=== PATIENT | female | born 1960 | race Caucasian/White ===

== ENCOUNTER 2016-10-11 07:25 | Day surgery (SDC) | payer BC ==
[2016-10-05 16:12] VITALS: BMI 24.3
[~2016-10-11 07:25] MED LIST: DEXAMETHASONE SOD PHOSPHATE 10 MG/ML 1 ML VIAL IV ONE; HEPARIN SODIUM,PORCINE 5,000 UNIT/ML 1 ML VIAL SQ ONE; LACTATED RINGERS 1,000 ML IV SCH; MIDAZOLAM 2 MG/2 ML VIAL IV PRN; ONDANSETRON 4 MG/2 ML VIAL IVP ONE; Pre Op ABX Message 1 EACH MISC MISCELLANE ONE; SCOPOLAMINE 1.5MG/72HR PATCH TRANSDERM ONE
[2016-10-11] MEDS ORDERED: LIDOCAINE 1% 20 ML VIAL (10MG/ML) FOR IV START SQ ONE (07:40)
[2016-10-11] MEDS ORDERED: HEPARIN SODIUM,PORCINE 5,000 UNIT/ML 1 ML VIAL SQ ONE (08:02)
[2016-10-11] MEDS ORDERED: fentaNYL (PF) 50 MCG/ML 2 ML AMP ONE (08:56)
[2016-10-11] MEDS ORDERED: PROPOFOL 10 MG/ML 20 ML VIAL IV ONE (08:56)
[2016-10-11] MEDS ORDERED: SUCCINYLCHOLINE CHLORIDE 100 MG/5 ML SYR IV ONE (08:56)
[2016-10-11] MEDS ORDERED: PHENYLEPHRINE-0.9% NACL SYG 1 MG/10 ML SYRINGE ONE (08:56)
[2016-10-11] MEDS ORDERED: MIDAZOLAM 2 MG/2 ML VIAL ONE (08:56)
[2016-10-11] MEDS ORDERED: ePHEDrine 50 MG/ML 1 ML AMP ONE (08:56)
[2016-10-11] MEDS ORDERED: LIDOCAINE 1% INJ 10MG/ML (20 ML MDV) ONE (08:56)
[2016-10-11] MEDS ORDERED: LACTATED RINGERS 1,000 ML IV ONE (09:50)
[2016-10-11] MEDS ORDERED: THROMBIN (BOVINE) 5,000 UNIT VIAL TOPICAL ONE (10:20)
[2016-10-11] MEDS ORDERED: GELATIN SPONGE,ABSORB (SMALL) 1 EACH SPONGE TOPICAL ONE (10:20)
[2016-10-11] MEDS ORDERED: NALOXONE 0.4 MG/ML 1 ML VIAL IV PRN (10:33)
[2016-10-11] MEDS ORDERED: HYDROmorphone 1 MG/ML 1 ML SYRINGE IV PRN (10:33)
--- NOTE | 2016-10-11 10:33 | P.OP ---
Date of Procedure: 10/11/16 Preoperative Diagnosis: Left thyroid nodule and atypical cells and suspicious Postoperative Diagnosis: Same Procedure(s) Performed: Left completion thyroid lobectomy Implants: Anesthesia: ALBERTAA Surgeon: Katelyn Mahmood Estimated Blood Loss (ml): 5 IV fluids (ml): 1,200 Urine output (ml): 200 Pathology: other (Left lobe of thyroid) Condition: stable Disposition: PACU Indications for Procedure: Nodule left lobe of thyroid suspicious patient status post right thyroid lobectomy in the past Operative Findings: Nodule left lobe of thyroid scar tissue Description of Procedure: Patient is a 55-year-old white female who was noted to have a left thyroid nodule biopsy was obtained and this was atypical, molecular testing revealed this to be suspicious. Patient is status post right thyroid lobectomy in the past. Patient was taken to the operating room and following induction of general anesthesia the patient was positioned stimulator was placed. The back was prepped and draped in a sterile fashion. Collar incision was made through prior incision taken through skin subcutaneous tissue and platysma. Superior and inferior skin flaps were developed. The left lobe of the thyroid was approached. The lobe was rotated medially rotated medially. There were noted to be scar tissue which was carefully dissected free from the gland. The area of close on to the superior pole vessels were identified these were ligated and divided. Inferior pole vessels were identified and ligated and divided. The middle thyroid vein was identified this was ligated and divided. I then stated close on the right and the lobe was rotated medially. This was able to be rotated up onto the trachea superior and inferior parathyroids were identified and preserved. There is believed to be recurrent laryngeal nerve was likewise identified and preserved. The gland was removed. Following this after assured that hemostasis was attained as was well irrigated. A [place] drain was placed in the neck. The strap muscles were closed using a Vicryl suture. The PLATYSMA was closed using 3-0 Vicryl. The skin was closed using 4-0 Monocryl. The drain was secured with the silk suture. Patient tolerated procedure in stable condition.
[2016-10-11] MEDS: HYDROmorphone 1 MG/ML 1 ML SYRINGE IVP PRN ×4 (11:05→11:25)
--- NOTE | 2016-10-11 16:30 | P.CONS ---
History of Present Illness - Reason for Consult Consult date: 10/11/16 Medical management - History of Present Illness This is a 55-year-old female patient of Dr. Brandon dasilva with a past medical history of thyroid nodules with previous right-sided resection 8 years ago, asthma, seizure disorder, migraines, diverticulitis, Gillespie Byrd, tobacco use and dependence. Patient was brought into the hospital by Dr. Twin reeves and underwent left complete thyroid lobectomy for left thyroid nodule and atypical cells. Patient is seen in the postop period. She denies any nausea or vomiting. Pain is controlled. She denies any chest pain or shortness of breath. Review of Systems All systems: negative Constitutional: Denies chills, Denies fever Eyes: denies blurred vision, denies pain Ears, nose, mouth and throat: Denies headache, Denies sore throat Cardiovascular: Denies chest pain, Denies shortness of breath Respiratory: Denies cough Gastrointestinal: Denies abdominal pain, Denies diarrhea, Denies nausea, Denies vomiting Genitourinary: Denies dysuria, Denies hematuria Musculoskeletal: Denies myalgias Integumentary: Denies pruritus, Denies rash Neurological: Denies numbness, Denies weakness Psychiatric: Denies anxiety, Denies depression Endocrine: Denies fatigue, Denies weight change Past Medical History Past Medical History: Asthma, Pneumonia, Seizure Disorder, Thyroid Disorder Additional Past Medical History / Comment(s): migranes, diverticulitis, petit- mal seizures, hx of guillian-barre X3, 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 She denies any medical marijuana, marijuana , street drug or alcohol use. She lives at home with her . Past Drug Use History: None Reported - Past Family History Mother Family Medical History: Deep Vein Thrombosis (DVT) Additional Family Medical History / Comment(s): Mother is alive at age 83 with history of hypertension. Father Additional Family Medical History / Comment(s): Father in his 70s with history of coronary artery disease, hypertension, aortic aneurysm, nonalcoholic cirrhosis of the liver. Brother(s) Additional Family Medical History / Comment(s): Patient has 2 brothers and one has Down syndrome status post open heart surgery. The second brother has no major medical problems. Sister(s) Additional Family Medical History / Comment(s): Patient has 3 sisters. One has rheumatoid arthritis diagnosed at age 22. Other 2 sisters have had hysterectomies for noncancerous reasons. Patient has 3 children that are healthy with no major medical problems. Medications and Allergies Home Medications Medication Instructions Recorded Confirmed Type Amitriptyline HCl [Elavil] 10 mg PO HS 10/05/16 10/11/16 History EPINEPHrine (Auto Inject) [Epipen] 0.3 mg IM ONCE PRN 10/05/16 10/11/16 History OXcarbazepine [Trileptal] 450 mg PO BID 10/05/16 10/11/16 History Allergies Allergy/AdvReac Type Severity Reaction Status Date / Time cefdinir Allergy Swelling Verified 10/05/16 15:56 clindamycin Allergy Anaphylaxis Verified 10/05/16 15:56 lamotrigine [From Lamictal] Allergy Rash/Hives Verified 10/05/16 15:56 ofloxacin [From Floxin] Allergy Diarrhea Verified 10/05/16 15:56 Sulfa (Sulfonamide Allergy Nausea & Verified 10/05/16 15:51 Antibiotics) Vomiting and rash metronidazole [From Flagyl] AdvReac Diarrhea Verified 10/05/16 15:56 Penicillins AdvReac Anaphylaxis Verified 10/05/16 15:51 Physical Exam Vitals: Vital Signs Temp Pulse Pulse Resp BP Pulse Ox 10/11/16 11:32 66 16 142/82 100 10/11/16 11:16 68 18 148/87 74 L 10/11/16 11:02 87 18 142/93 99 10/11/16 10:45 98 F 104 H 16 122/85 98 10/11/16 07:44 98.3 F 79 15 146/91 98 Intake and Output 10/10/16 10/11/16 10/11/16 22:59 06:59 14:59 Intake Total 1500 Output Total 355 Balance 1145 Intake: IV 1500 Output: Urine 350 Estimated Blood Loss 5 Gen: This is a 55-year-old female. She is resting in bed and appears to be in no acute distress. HEENT: Head is atraumatic, normocephalic. Pupils equal, round. Sclerae is anicteric. NECK: Supple. No JVD. Dressing in place to the midline. LUNGS: Clear to auscultation. No wheezes or rhonchi. No intercostal retractions. HEART: Regular rate and rhythm. No murmur. ABDOMEN: Soft. Bowel sounds are present. No masses. No tenderness. EXTREMITIES: No pedal edema. No calf tenderness. NEUROLOGICAL: Patient is awake, alert and oriented x3. Cranial nerves 2 through 12 are grossly intact. Assessment and Plan Plan: 1. Left thyroid nodule status post left thyroid lobectomy. Continue current pain management. No plan to resume a levothyroxine until outpatient. 2. Seizure disorder. Continue Trileptal. 3. Gastrointestinal prophylaxis. Continue Pepcid. 4. DVT prophylaxis. Heparin subcu. Discharge plan: Return home Impression and plan of care have been directed as dictated by the signing physician. Tegan Haji nurse practitioner acting as scribe for signing physician.
[2016-10-11] MEDS: DEXTROSE 5%-0.45% NACL 1,000 ML IV SCH (17:03)
[2016-10-11] MEDS: HEPARIN SODIUM,PORCINE 5,000 UNIT/ML 1 ML VIAL SQ SCH (17:22)
[2016-10-11] MEDS ORDERED: AMITRIPTYLINE HCL 10 MG TAB PO SCH (21:00)
[2016-10-11] MEDS: OXcarbazepine 300 MG TAB PO SCH (21:39)
[2016-10-11] MEDS: HYDROcodone/APAP 5-325MG 1 EACH TAB PO PRN (21:48)
[2016-10-11] MEDS: FAMOTIDINE 20 MG TAB PO SCH (22:06)
[2016-10-12] MEDS: HEPARIN SODIUM,PORCINE 5,000 UNIT/ML 1 ML VIAL SQ SCH ×2 (00:21→08:17)
[2016-10-12] MEDS: DEXTROSE 5%-0.45% NACL 1,000 ML IV SCH (02:05)
[2016-10-12] MEDS ORDERED: LEVOTHYROXINE 125 MCG TAB PO SCH (06:30)
[2016-10-12 08:11] VITALS: BP 138/90; PULSE 68; RESP 16; TEMP 97.4
[2016-10-12] MEDS: FAMOTIDINE 20 MG TAB PO SCH (08:18)
[2016-10-12] MEDS: OXcarbazepine 300 MG TAB PO SCH (08:18)
--- NOTE | 2016-10-12 08:56 | P.PN ---
Subjective Postop day #1 from completion thyroidectomy Patient is doing well without complaints at this time, this is strong and she has no numbness or tingling Patient's calcium is 8.6 from 9.3 yesterday Objective - Vital Signs Vital signs: Vital Signs Temp 97.4 F L 10/12/16 08:00 Pulse 68 10/12/16 08:00 Resp 16 10/12/16 08:00 BP 138/90 10/12/16 08:00 Pulse Ox 96 10/12/16 08:00 Intake & Output 10/11/16 10/12/16 10/12/16 18:59 06:59 18:59 Intake Total 1980 400 Output Total 655 Balance 1325 400 Weight 77.111 kg Intake: IV 1500 Oral 480 400 Output: Urine 650 Estimated Blood Loss 5 Other: Voiding Method Toilet Toilet # Voids 1 1 - Constitutional General appearance: Present: thin - Neck Details: Dressing change drain removed incision clean and dry - Respiratory Respiratory: bilateral: CTA - Cardiovascular Rhythm: regular Heart sounds: normal: S1, S2 - Gastrointestinal General gastrointestinal: Present: soft - Psychiatric Psychiatric: Present: A&O x's 3, appropriate affect, intact judgment & insight Assessment and Plan Plan: Impression/plan: 1. Patient status post completion thyroidectomy stopped a #1 Patient doing well plan for discharge home later today
--- NOTE | 2016-10-12 08:58 | P.DS ---
Providers Attending physician: Katelyn Mahmood Consults: 10/11/16 10:37 Consult Physician Routine Consulting Provider: Vik Castellano Consult Reason/Comments: Medical management Do you want consulting provider notified?: Yes Primary care physician: Brandon Steinberg [facility] Course: Patient is a 55-year-old white female who is status post completion thyroidectomy postop day #1. She has done well postoperatively and is able to be discharged home to be followed as an outpatient. Her calcium was noted to be slightly decreased at 8.6 and she will go home on oral calcium supplementation. She is instructed to return to the emergency room if she has any numbness or tingling in her fingers or toes or circumoral oral numbness or tingling. Plan - Discharge Summary New Discharge Prescriptions: Calcium Carb-Vit D 500Mg-200Un [Oscal 500+D] 2 each PO TID #30 tablet Discharge Medication List Amitriptyline HCl [Elavil] 10 mg PO HS 10/05/16 [History] EPINEPHrine (Auto Inject) [Epipen] 0.3 mg IM ONCE PRN 10/05/16 [History] OXcarbazepine [Trileptal] 450 mg PO BID 10/05/16 [History] Calcium Carb-Vit D 500Mg-200Un [Oscal 500+D] 2 each PO TID #30 tablet 10/12/16 [ Rx] Follow up Appointment(s)/Referral(s): Katelyn Mahmood MD [STAFF PHYSICIAN] - 10/21/16 12:45 pm (you have a follow up appointment with Dr Twin Ortiz on Friday, October 21, 2016) Patient Instructions/Handouts: Total Thyroidectomy (DC) Activity/Diet/Wound Care/Special Instructions: No heavy lifting, avoid bending over. May shower but be careful to keep water away from incision until it heals over. No driving, no housework, activity as tolerated, rest as needed. May change dressing as needed. Call Dr Twin Ortiz if you develop a fever, chills, vomiting, purulent drainage from your incision, of if you have any other concerns or questions. Come to the [facility] if you experience any numbness or tingling of the lips, face, or fingers as this is a sign of low calcium. Take OSCAL with vitamin D 500mg take 2 tablets three times a day until you see Dr Twin Ortiz for your follow up appointment. Discharge Disposition: HOME SELF-CARE
[2016-10-12] MEDS: HYDROcodone/APAP 5-325MG 1 EACH TAB PO PRN (10:12)
== END 2016-10-12 10:26 | disposition home or self-care (01) ==
LOC: OR 07:25 → 6PED 11:21 → OR 10-12 10:26
PROVIDERS: ATTEND Surgery
DX: G40.909 Epilepsy, unspecified, not intractable, without status epilepticus (principal); J44.9 Chronic obstructive pulmonary disease, unspecified; F17.200 Nicotine dependence, unspecified, uncomplicated; Z79.899 Other long term (current) drug therapy; Z88.1 Allergy status to other antibiotic agents; Z88.0 Allergy status to penicillin; Z88.2 Allergy status to sulfonamides; Z88.8 Allergy status to other drugs, medicaments and biological substances
CPT/HCPCS: 82310 ×2; 88307; 60210; J1644 ×2; J1100; J2405; J1170

== ENCOUNTER → 2017-08-02 | Outpatient (CLI) | payer BC ==
[2017-08-02 12:41] LABS: Basophils % (A) 0 %; Eosinophils # (A) 0.2 k/uL (0-0.7); Eosinophils % (A) 2 %; HCT 40.6 % (34.0-46.0); HGB 13.1 gm/dL (11.4-16.0); Lymphocytes # (A) 1.8 k/uL (1.0-4.8); Lymphocytes % (A) 25 %; MCHC 32.3 g/dL (31.0-37.0); MCV 86.8 fL (80.0-100.0); Monocytes # (A) 0.3 k/uL (0-1.0); Monocytes % (A) 4 %; Neutrophils # (A) 5.1 k/uL (1.3-7.7); Neutrophils % (A) 68 %; Platelet Count 355 k/uL (150-450); RBC 4.68 m/uL (3.80-5.40); RDW 13.9 % (11.5-15.5); WBC 7.5 k/uL (3.8-10.6)
[2017-08-02 12:59] LABS: ALT 24 U/L (9-52); AST 13 U/L (14-36); Albumin 4.5 g/dL (3.5-5.0); Alkaline Phosphatase 89 U/L (38-126); Anion Gap 8 mmol/L; Blood Urea Nitrogen 12 mg/dL (7-17); Calcium 9.8 mg/dL (8.4-10.2); Carbon Dioxide 29 mmol/L (22-30); Chloride 100 mmol/L (98-107); Glucose 93 mg/dL (74-99); Potassium 4.3 mmol/L (3.5-5.1); Sodium 137 mmol/L (137-145); Total Bilirubin 0.4 mg/dL (0.2-1.3); Total Protein 6.9 g/dL (6.3-8.2)
[2017-08-02 13:15] LABS: T4, Free (Free Thyroxine) 1.91 ng/dL (0.78-2.19)
[2017-08-02 14:44] LABS: Erythrocyte Sedimentation Rate 9 mm/hr (0-20)
[2017-08-02 19:39] LABS: Thyroid Peroxidase Antibodies <28.0 U/mL (0.0-60.0)
[2017-08-03 12:05] LABS: T4, Total 11.5 ug/dL (4.5 - 10.9)
== END | disposition home or self-care (01) ==
LOC: LABWHC1 11:57
PROVIDERS: ATTEND Allergy & Immunology
DX: L50.8 Other urticaria (principal); T78.3XXA Angioneurotic edema, initial encounter
CPT/HCPCS: 36415; 80053; 84436; 84439; 84443; 85025; 85652; 86160; 86162; 86376; 86800; 88184; 88185